=== PATIENT | female | born 1945 | race Caucasian/White ===

== ENCOUNTER 2019-01-07 18:07 | Inpatient (IN) | payer OTHER ==
[~2019-01-07] VITALS: Ht 160 cm; Wt 80.7 kg
[2019-01-07 18:10] VITALS: BP 137/56
[2019-01-07 18:58] LABS: URINE BILIRUBIN NEGATIVE (Negative); URINE BLOOD 1+ (Negative); URINE CLARITY CLEAR; URINE COLOR YELLOW; URINE GLUCOSE-RANDOM* NEGATIVE (Negative); URINE KETONES NEGATIVE (Negative); URINE LEUKOCYTES-REFLEX NEGATIVE (Negative); URINE NITRITE-REFLEX NEGATIVE (Negative); URINE PROTEIN (DIPSTICK) NEGATIVE (Negative); URINE SPECIFIC GRAVITY 1.015 (1.005-1.035); URINE UROBILINOGEN 0.2 E.U./dl (0.2-1.0)
[2019-01-07 19:11] LABS: HEMATOCRIT 32.2 % (37.0-47.0); HEMOGLOBIN 11.1 gm/dL (12.0-15.0); MCH 30.8 pg (26.0-34.0); MCHC 34.3 g/dL (28.0-37.0); MCV 89.9 fL (80.0-100.0); PLATELET COUNT 236 thou/uL (150-400); RBC 3.59 mil/uL (4.20-5.00); RDW 14.5 % (10.5-14.5); WBC 7.8 thou/uL (4.0-11.0)
[2019-01-07 19:19] LABS: CALCIUM 9.4 mg/dL (8.5-10.1); CREATININE 0.8 mg/dL (0.6-1.0); POTASSIUM 3.4 mmol/L (3.5-5.1)
[2019-01-07 19:20] LABS: SQUAMOUS 4-10 Moderate /LPF (0-3)
[2019-01-07 19:21] LABS: BACTERIA-REFLEX None Seen /HPF (None Seen); CASTS None Seen /LPF (None Seen); CRYSTALS None Seen /LPF (None Seen); RENAL EPITHELIAL CELLS 0-3 Few /LPF (None Seen); URINE RBC 0-2 Rare /HPF (0-2); URINE WBC-REFLEX 0-5 Rare /HPF (0-5)
[2019-01-07 19:25] LABS: ALBUMIN 3.2 g/dL (3.4-5.0); TOTAL BILIRUBIN 0.3 mg/dL (<0.1-1.0); TOTAL PROTEIN 7.2 g/dL (6.4-8.2)
[2019-01-07 19:30] LABS: ABSOLUTE NEUTROPHILS 4.5 thou/uL (1.4-8.2)
[2019-01-07 22:47] VITALS: BP 136/51
[2019-01-07] MEDS ORDERED: CANDESARTAN-HC1 EAC2 PO (23:02)
[2019-01-07] MEDS ORDERED: NORVASC2.5 MG PO (23:03)
[2019-01-07] MEDS ORDERED: PERCOCET PO (23:04)
--- NOTE | 2019-01-08 02:41 | NUR ---
RECIEVED PT FROM ED , UPON ARRIVAL TO UNIT TO ASSESSMENT AND DATA BASE COMPLETED, JORGE DRAIN INTACT WITH SCANT AMOUNT OF OUTPUT, DISCUSSED PLAN OF CARE AND PT AGRREABLE TELEM MONITOR SHOW NSR . RESTING WELL THROUGHOUT HOURLY ROUNDS, WILL CONTINUE WITH CURRENT PLAN OF CARE.
[2019-01-08 04:14] VITALS: BP 150/61
[2019-01-08 05:10] LABS: CALCIUM 8.8 mg/dL (8.5-10.1); CREATININE 0.7 mg/dL (0.6-1.0); POTASSIUM 3.7 mmol/L (3.5-5.1)
[2019-01-08 05:14] LABS: HEMATOCRIT 30.5 % (37.0-47.0); HEMOGLOBIN 10.3 gm/dL (12.0-15.0); MCH 30.6 pg (26.0-34.0); MCHC 33.9 g/dL (28.0-37.0); MCV 90.4 fL (80.0-100.0); PLATELET COUNT 208 thou/uL (150-400); RBC 3.37 mil/uL (4.20-5.00); RDW 14.6 % (10.5-14.5); WBC 5.3 thou/uL (4.0-11.0)
[2019-01-08 05:48] LABS: ABSOLUTE NEUTROPHILS 1.5 thou/uL (1.4-8.2); ATYPICAL LYMPHS 4 %; MYELOCYTES 1 %
[2019-01-08 08:38] VITALS: BP 142/71
[2019-01-08 11:42] VITALS: BP 146/58
--- NOTE | 2019-01-08 15:21 | NUR ---
VSS, NO ELEVATED TEMP TODAY. LUNGS CLEAR RA SAT IS 94%. R BREAST INCISION INTACT AND WELL APROXIMATED, BREAST SLIGHTLY PINK, JORGE DRAINING SM AMT SERROSANGUINOUS . UP IN ROOM INDEPENDENTLY AND TOLERATED WELL. WILL CONTINUE TO MONITER AND CARE FOR PT PER PLAN OF CARE
[2019-01-08 16:47] VITALS: BP 135/57
[2019-01-08 20:25] VITALS: BP 133/60
[2019-01-09 00:35] VITALS: BP 141/51
--- NOTE | 2019-01-09 03:11 | NUR ---
ASSESSMENT CHARTED. VSS. PT C/O HEADACHE CONTROLED WIHT PRN TYLENOL PER EMAR. RIGHT BREAST INCISION J/P DRAIN IN PLACE WELL APX. L BREAST WELL APX. AD DIA TO BATHROOM STEADY. PLAN FOR IV ABX THIS AM. WILL CONTINUE TO MONITOR AND WITH POC.
[2019-01-09 03:36] VITALS: BP 159/70
[2019-01-09 04:57] LABS: HEMOGLOBIN 10.5 gm/dL (12.0-15.0); MCH 30.9 pg (26.0-34.0); MCHC 33.9 g/dL (28.0-37.0); MCV 91.1 fL (80.0-100.0); PLATELET COUNT 197 thou/uL (150-400); RBC 3.41 mil/uL (4.20-5.00); RDW 14.9 % (10.5-14.5); WBC 5.9 thou/uL (4.0-11.0)
[2019-01-09 06:37] LABS: ABSOLUTE NEUTROPHILS 3.2 thou/uL (1.4-8.2); ATYPICAL LYMPHS 1 %
[2019-01-09 07:20] VITALS: BP 152/63
--- NOTE | 2019-01-09 07:57 | H ---
[facility] [place] [address] HISTORY AND PHYSICAL Name: OLI ELMORE Room #: 218-P ADM IN M.R.#: [id number] Admission: 01/07/19 Attend Phys: Tyshawn Gonzalez DO Discharge: Date of : 41 Report #: [id number] THIS REPORT FOR: //name// CC: Tyshawn Gonzalez DATE OF SERVICE: 01/07/2019 LOCATION: Room 218. HISTORY OF PRESENT ILLNESS: This 73-year-old white female was admitted to the Emergency Room after being seen by me, because of fever and an infected right breast postoperatively. The patient's history is, in brief, as follows. She had an abnormal mammogram followed for several months and in September of this year. A biopsy showed grade 1 invasive ductal carcinoma, ER 76%, IL 60%, HER-2 negative with Ki-67 of 6%. She underwent initial surgery on 12/06/2018, at which time, she had a lumpectomy as well as bilateral total capsulectomies with removal of implant material and excision of right breast silicone granuloma and implant replacement. The patient previously had had breast augmentation and replacements in 1974 and 1981. Subsequently, after the surgery in November, she developed redness and fever and drainage from the right breast, which cultured out E. coli sensitive initially to Augmentin, on which she was placed. She then, on 12/29/2018, went to surgery at [facility] and Dr. Gomez performed an irrigation, debridement and implant removal of the right breast. Findings were seropurulent fluid in the implant pocket and moderate fibrinous exudate. She was hospitalized for 1 day at [facility] following that procedure on gentamicin 100 mg every 8 hours for 3 doses and was discharged home on Cipro. The culture from surgery subsequently returned and showed E. coli resistant to Augmentin and Cipro, but sensitive to cefepime and Zosyn and gentamicin. Because of temperature spike and continued sweats and Her equests not to return to [facility], I directed the patient to the Emergency Room here, evaluated her and admitted her. PAST MEDICAL HISTORY: Other than the above, the patient's history includes hepatitis C from blood transfusion, treated successfully with Dr. Candelario Davila; osteopenia of the spine, for which she is on Boniva, hypertension, for which she is on amlodipine and candesartan/HCTZ; hyperlipidemia; right knee arthritis, status post right total knee replacement; mild ADHD; history of vitamin D deficiency; colonoscopy in 2008 with 2 small polyps. MEDICATIONS ON ADMISSION: Alendronate 70 mg weekly, atorvastatin 10 mg daily, amlodipine 2.5 mg daily, candesartan and HCTZ 32/25 one tablet daily, Cipro 500 b.i.d. ALLERGIES: SULFA (severe rash with purpura). SOCIAL HISTORY: Does not smoke or drink. [place] [address] HISTORY AND PHYSICAL Name: OLI ELMORE Room #: 218-P [facility] IN M.R.#: [id number] Admission: 01/07/19 Attend Phys: Tyshawn Gonzalez DO Discharge: Date of : 41 Report #: [id number]. REVIEW OF SYSTEMS: Denies chest pain, abdominal pain, nausea, vomiting, dysuria or diarrhea. PHYSICAL EXAMINATION: GENERAL: Pleasant elderly white female, in no acute distress. VITAL SIGNS: Temperature 36.9, BP 137/56, pulse 84, respiration 16. HEAD: No rash or trauma. EARS, NOSE AND THROAT: No lesions. EYES: No icterus. NECK: Supple, without bruits. LUNGS: Clear. Cough, dry. HEART: Rhythm regular without murmur. ABDOMEN: Soft, without mass, tenderness or guarding. BREASTS: Left breast incisions are healing well without any sign of inflammation. The right breast has a Quinn-Rehman drain, draining slightly purulent looking bloody fluid. There is slight redness in the upper mid breast. EXTREMITIES: Puffy, but no edema. NEUROLOGIC: She is alert and well oriented. She is an accurate historian. LABORATORY DATA: Her white count here is 5300 with rightward shift, hemoglobin 10.3, MCV 90, platelets 208,000. Urinalysis essentially negative. Sodium 134, potassium low at 3.4, CO2 of 28, BUN 18, creatinine 0.8, blood sugar 103, calcium 9.4. Liver enzymes normal. Albumin slightly low at 3.2. IMPRESSION: 1. Postoperative infection, right breast, status post removal of right breast implant. 2. History of stage I invasive ductal carcinoma, status post right lumpectomy. 3. Hypertension. 4. History of vitamin D deficiency. 5. History of osteopenia. 6. Chronic anemia. 7. Recent removal right saline breast implant and insertion of saline implant left breast PLAN: Hospitalize for IV antibiotics. ID and Plastic Surgery consultations. Subsequent followup with Oncology will be obtained. She did see Dr. Candelario Rosales, Radiation Oncology, who felt that she did not need radiation therapy. <ELECTRONICALLY SIGNED> By: Tyshawn Gonzalez DO 01/09/19 [id number] Tyshawn Gonzalez, DO /nt
--- NOTE | 2019-01-09 08:35 | HC ---
[facility] [place] [address] CONSULTATION Name: OLI ELMORE Room #: 218-P [facility] IN M.R.#: [id number] Admission: 01/07/19 Attend Phys: Tyshawn Gonzalez DO Discharge: Date of : 41 Report #: [id number] THIS REPORT FOR: //name// CC: Tyshawn Gonzalez DATE OF SERVICE: 01/08/2019 INFECTIOUS DISEASE CONSULTATION ATTENDING PHYSICIAN: Tyshawn Gonzalez DO REASON FOR EVALUATION: Right breast skin and soft tissue infection. HISTORY OF PRESENT ILLNESS: Chart reviewed, patient examined. This is a 73-year-old woman with fairly recent diagnosis of invasive ductal carcinoma of the right breast, underwent operative debridement with lumpectomy, this was followed by implant, had chronic persistent drainage from the incision. Ultimately, it was felt to have likely infection, underwent removal of the implant, was cultured, I believe at least a couple of times, empirically placed on antibiotics with cephalexin and then Augmentin, was confirmed to have Escherichia coli per the record, it was multiple resistant. She was admitted for treatment of parenteral antibiotics, started on cefepime. She had had associated low-grade temperature elevations, sweats. After removal was treated with parenteral therapy with gentamicin and ciprofloxacin. Denies significant pulmonary or gastrointestinal related complaints. ALLERGIES: LISTED TO SULFA. CURRENT MEDICATIONS: Include atorvastatin, amlodipine, cefepime. PAST MEDICAL HISTORY: As described above, right-sided breast cancer, post-lumpectomy, hypertension, right knee replacement, apparently history of hepatitis C, treated. SOCIAL HISTORY: Nonsmoker. No illicit drug use. Occasional ethanol. FAMILY HISTORY: Noncontributory. REVIEW OF SYSTEMS: Otherwise, unremarkable 10-point review of systems with exception of the history of present illness. PHYSICAL EXAMINATION: GENERAL: She is alert, cooperative, pleasant. She is somewhat anxious, appears to be reasonably well nourished. VITAL SIGNS: Temperature 98.4, pulse 76, respirations 20, blood pressure 150/61. [facility] [employer] [place] [address] CONSULTATION Name: OLI ELMORE Room #: 218-P [facility] IN [facility]#: [id number] Admission: 01/07/19 Attend Phys: Tyshawn Gonzalez, Discharge: Date of : 41 Report #: [id number] SKIN: Warm, dry, no rashes. HEENT: Otherwise, unremarkable. NECK: Supple. Extraocular muscles intact. Normocephalic. LUNGS: Generally clear to auscultation. HEART: Regular. I do not appreciate a murmur. ABDOMEN: Soft, nontender, nondistended. BREASTS: Right breast, there is some mild to moderate inflammatory changes. There is a JORGE drain in place at this point, dark type discharge. GENITOURINARY: Deferred. RECTAL: Deferred. LABORATORY DATA: Urinalysis 0-5 white cells. Electrolytes: Sodium 134, potassium 3.4, chloride 100, bicarbonate 28, anion gap of 6, BUN and creatinine 18 and 0.8, glucose of 103, albumin 3.2, total protein of 7.2. CBC: White count of 7.8, H and H 11.1 and 32.2, platelets of 236, did have 6% eosinophils. ASSESSMENT AND PLAN: Right breast skin and soft tissue infection. At this point, we will continue current approach as prescribed. I have not seen the susceptibility test done on the outpatient culture. She does note some itching and some mild eosinophilia may be a low-grade hypersensitivity to the cephalosporin. At this point, we would treat symptomatically. At this point, there is no foreign body, which is quite helpful in eradicating the infection. Dr. Darden to return tomorrow. Likely, he will arrange therapy for up to 2 weeks of parenteral as required by the susceptibility testing. <ELECTRONICALLY SIGNED> By: Jeffrey Walden MD 01/09/19 [id number] Jeffrey Walden MD /nt
--- NOTE | 2019-01-09 10:43 | NUR ---
REPORT GIVEN TO OLI ON 4W. VSS, LUNGS CLEAR RA. R JORGE UNDER R BREAST WITH SM AMT SERROSANGUINOS FLUID. WHEELCHAIR VIA TRANSPORT TO [phone]
--- NOTE | 2019-01-09 12:42 | NUR ---
met with patient and discussed possible need for home infusion. patient reports she has a s/o who may be avail to assist in home setting. She reports her phys mentioned [facility] as option depending on coverage. Patient to transfer to [facility]. They came to transport patient. reviewed briefly will inquire into benfits and determine coverage. Discussed medicare does not cover supplies usu $20 a day. Patient reports her secondary ins not accurate. She report she notified admissions when she admitted. She has a different policy than prev. Faxed updated info to admitting. Await ID to round to determine need for home infusion. [email or web address] following.
--- NOTE | 2019-01-09 13:14 | NUR ---
FAXED REFERRAL TO [facility] FOR IV ABX INFUSION TO CHECK BENEFITS. SPOKE WITH YANNICK AT [facility] HE RECEIVED REFERRAL AND FOR 7 DAYS FOR DRUG CO-PAY AND SUPPLIES THE PT COST OUT OF POCKET WILL BE $265.58 X 7 DAYS.
[2019-01-09 14:59] VITALS: BP 150/55
--- NOTE | 2019-01-09 15:41 | NUR ---
dp sent referral skilled to [facility], dp notified Arlette at facility.
--- NOTE | 2019-01-09 17:17 | NUR ---
PT TRANSFERED TO [facility]ARE TEAM HAD SENT REFERRAL TO [facility] THEN ID CHANGED DRUG TO [facility]ERR[facility] FOR COPAY AND SUPPLIES FOR 1 WEEK IS $495.62 FOR HOME INFUSION. REFERRAL ALSO SENT TO [facility]. THEY INDICATED THAT THEY HAVE A BED OPEN TOMORROW. CM SPOKE WITH PT AND DTR. CM TO FOLLOW UP AND DETERMINE DC NEEDS. CM TO FOLLOW INDICATED WITH DC PLANNING.
--- NOTE | 2019-01-09 17:29 | NUR ---
CONSULTED TO PLACE A PICC FOR A PATIENT DISCHARGING WITH HOME IV ANTIBIOTICS. ORDER AND CONSENT NOTED. THE PROCEDURE WELL RISK FOR INFECTION AND DVT WERE DISCUSSED AND SHE VERBALIZED UNDERSTANDING. THE LEFT UPPER ARM BASILIC WAS WIDLEY PATENT. A #4F SINGLE LUMEN POWER PICC WAS PLACED PER HOSPITAL POLICY AFTER A BEDSIDE TIMEOUT WAS COMPLETED. A STAT CHEST XRAY WAS ORDERED FOR PLACEMENT CONFIRMATION
[2019-01-09 19:46] VITALS: BP 142/67
--- NOTE | 2019-01-09 20:18 | NUR ---
ARRIVED TO FLOOR FROM CCU THIS AFTERNOON. ASSESSMENT COMPLETED. JORGE DRAIN INTACT TO TO RIGHT BREAST. IV TEAM PLACED PICC LINE. CXR VERIFIED PLACEMENT. STARTED IV MEROPENEM. FAXED A REQUEST TO [facility] TO GET CULTURE AND SENSITIVITY FROM 12/29/18. TOLERATING DIET. DENIED PAIN. FAMILY AT BEDSIDE.
--- NOTE | 2019-01-10 02:48 | NUR ---
PATIENT AOX4 MAKES NEEDS KNOWN. PATIENT IS UP AT DIA. PATIENT HAS JORGE DRAIN ON THE RIGHT BREAST. DRESSING ON RIGHT BREAST IS C/D/I.SCD ON. PATIENT AMBULATES IN THE ROOM AND IN BATHROOM WITH STEADY GAITS. PATIENT IN BED ASLEEP AT THIS TIME BREATHING REGULAR AND UNLABOURED.
[2019-01-10 03:54] VITALS: BP 137/71
[2019-01-10 08:22] VITALS: BP 137/64
--- NOTE | 2019-01-10 11:25 | NUR ---
dp sent updates and pt to [facility], still waiting on ot, will follow up when ot is in.
--- NOTE | 2019-01-10 11:34 | NUR ---
ORDERS FOR PT EVAL AND TREAT RECEIVED. Pt HAS BEEN UP AD DIA IN ROOM PER Pt AND RN. Pt SEATED AT EOB UPON PT ARRIVAL. Pt COMPLETED BED MOBILITY INDEPENDENTLY. Pt LIVES AT HOME ALONE WITH A FEW STEPS TO ENTER FROM GARAGE. HAS A FLIGHT OF STAIRS UP TO BEDROOM WITH [employer]. STATED SHE HAS NO DIFFICULTY WITH STAIRS. AMBULATORY WITHOUT GAIT AIDS AND HAS BEEN UP TO BATHROOM IN HOSPITAL ROOM INDEPENDENTLY. Pt DRIVES. GOES TO [employer] THREE TIMES A WEEK. INDEP WITH ADLs AT BASELINE. Pt STATED SHE DOES HAVE NEED PHYSICAL THERAPY AT THIS TIME, HOWEVER MAY NEED TO PURSUE OUTPATIENT PT AT SOME POINT FOR HER L SHOULDER/ROTATOR CUFF. NO ACUTE PT NEEDS IDENTIFIED. ACUTE PT TO SIGN OFF. IF Pt EXPERIENCES A DECLINE IN STRENGTH, BALANCE, ENDURANCE, OR FUNCTIONAL MOBILITY, PLEASE CONSIDER RE-CONSULTING PT.
[2019-01-10 15:14] VITALS: BP 139/50
--- NOTE | 2019-01-10 16:38 | NUR ---
[facility] OF OP IS ABLE TO ACCEPT PT ONCE MEDICALLY STABLE. WE ARE AWAITING ID AND PHYSICIAN CLEARENCE FOR DC. CM FOLLOWING TO ASSIST WITH DC PLANNING INDICATED.
--- NOTE | 2019-01-10 19:30 | NUR ---
Assumed pt care this am, she is up at benja and able to go to the tpilet and ambulate in her room with ease. PICC is patent, JORGE drain on the right breast has minimal draininage of 5cc. Medical records from [facility] attached to the from of the chart, informed Dr. Darden. No signs or verbalizations of distress have been noted. Isolation mainatained for esbl producing e.coli. POC followed. JORGE drain to be removed if total drainage in less than 15ml prior to transfer. CM worked on [facility], can go once cleared.
[2019-01-10 20:00] VITALS: BP 147/64
--- NOTE | 2019-01-11 03:14 | NUR ---
ASSUMED CARE AROUND 1899. AXOX4. CONTACT ISO KEPT. NO JORGE DRAIN INTACT DRAINAING SMALL AMOUNT OF SEROSANGUINEOUS DRINAGE. NO S/S ACUTE DISTRESS NOTED OR REPORTED AT THIS TIME. WILL CONT TO MONITOR FOR ANY CHANGES IN CONDITION.
[2019-01-11 05:51] VITALS: BP 143/57
[2019-01-11 06:00] LABS: HEMATOCRIT 34.1 % (37.0-47.0); HEMOGLOBIN 11.5 gm/dL (12.0-15.0); MCH 30.5 pg (26.0-34.0); MCHC 33.7 g/dL (28.0-37.0); MCV 90.4 fL (80.0-100.0); PLATELET COUNT 202 thou/uL (150-400); RBC 3.77 mil/uL (4.20-5.00); RDW 14.8 % (10.5-14.5); WBC 8.3 thou/uL (4.0-11.0)
[2019-01-11 06:30] LABS: CALCIUM 9.2 mg/dL (8.5-10.1); CREATININE 0.8 mg/dL (0.6-1.0); POTASSIUM 3.7 mmol/L (3.5-5.1); TOTAL BILIRUBIN 0.3 mg/dL (<0.1-1.0); TOTAL PROTEIN 7.1 g/dL (6.4-8.2)
[2019-01-11 06:49] LABS: ABSOLUTE NEUTROPHILS 4.7 thou/uL (1.4-8.2); ANISOCYTOSIS 1+; PLATELET ESTIMATE NORMAL; POIKILOCYTOSIS 1+; POLYCHROMASIA 1+
[2019-01-11] MEDS ORDERED: CATHFLO ACT2 MG/VIA1 INJECTION (07:39)
[2019-01-11] MEDS ORDERED: ACETAMINOPHEN325 M1 PO (07:39)
[2019-01-11] MEDS ORDERED: FLUSH IV (07:40)
[2019-01-11] MEDS ORDERED: WATER10 ML INJECTION (07:40)
[2019-01-11] MEDS ORDERED: MEROPENEM 1 GM V1 GM IV (07:41)
[2019-01-11 08:18] VITALS: BP 131/62
--- NOTE | 2019-01-11 08:39 | NUR ---
I have reviewed the documentation by ATUL MARTINO from 01/10/19 to 01/11/19 and I concur with it. Andrey WAYNE
[2019-01-11 08:44] VITALS: BP 131/62
--- NOTE | 2019-01-11 11:09 | NUR ---
Patient dc today to [facility]. DP put dc paperwork in chart copy envelope. DP faxed dishcarge paperwork to [facility] and notified admissions. DP called patient's daughter to let her know of dc time.
--- NOTE | 2019-01-11 20:02 | NUR ---
Received awake on bed. Due medications given as prescribed. A+Ox4. On room air. Up ad benja. With single lumen PICC line at L upper arm- intact and flushing well. With Jorge drain- intact. Maintained on isolation. For possible discharge to [facility], a/w discharge orders and CM recommendations. Vital signs stable. Pt seen by Dr Gonzalez this AM. Discharge pending- once SNF bed becomes available- CM informed; pt to go with PICC line- IV antibiotics to continue, to pass by Dr Ca's office prior to going to SNF- CM informed so she can set up transport. To set up appointment to Dr aDrden's office on 01/18- called in and set up an appoinment on 01/18 at 1415- pt aware of schedule. Called in Dr Darden to inform re: pt's discharge orders and to ask if ok to remove JORGE drain- as per Dr Darden no objection on removal of drain, pt informed. CM set up transport at 1100 and informed them re: dropping by at Dr Ca's office for pt's appointment. Called in report to staff: Tracey. Informed her re: follow up schedules, with PICC line, with JORGE drain, with follow up today at Dr Ca's office, blood works to be done after 1 week, IV antibiotics to continue + prescription for cathflo. Chart copy, discharge summary, discharge instructions sent to facility thru transport. Pt fetched via wheelchair, personal belongings taken with her. Discharge orders put in behalf of Dr Gonzalez as per Charge nurse's advice since pt had pending discharge orders put in this morning.
== END 2019-01-11 12:43 | DRG 601 ==
LOC: ER 18:07 → 2N 19:06 → EROBS 19:06 → 4W 19:06 → 2N 22:20 → ENTRNSPT 01-09 10:54 → EDTRNSPTSTS 01-09 10:58 → 4W 01-09 11:23
PROVIDERS: Emergency Medicine; ADMIT Internal Medicine
PROC: 02HV33Z Insertion of Infusion Device into Superior Vena Cava, Percutaneous Approach (ICD-10-PCS; principal; 2019-01-09)
DX: N61.1 Abscess of the breast and nipple (principal); F90.9 Attention-deficit hyperactivity disorder, unspecified type; M85.80 Other specified disorders of bone density and structure, unspecified site; D05.10 Intraductal carcinoma in situ of unspecified breast; B96.20 Unspecified Escherichia coli [E. coli] as the cause of diseases classified elsewhere; Z96.651 Presence of right artificial knee joint; I10 Essential (primary) hypertension; M17.0 Bilateral primary osteoarthritis of knee; Z88.2 Allergy status to sulfonamides; Z86.19 Personal history of other infectious and parasitic diseases; Z90.11 Acquired absence of right breast and nipple
CPT/HCPCS: 10040; 10194; 27000